=== PATIENT | male | born 1960 | race Caucasian/White ===

== ENCOUNTER 2017-12-08 05:42 | Day surgery (SDC) | payer BC ==
[~2017-12-08] VITALS: Ht 177.8 cm; Wt 111.0 kg
[~2017-12-08 05:42] MED LIST: CALC500T93 PO; GLUC1CAP40 PO; LORA10TA3 PO; MAGN400C PO; MULT1TAB60 PO; OMEG-107 PO; ZINC30TA2 PO
[2017-12-08] MEDS ORDERED: LACTATED RINGERS 1,000 ML IV SCH (06:09)
[2017-12-08 06:10] VITALS: BP 154/88
[2017-12-08] MEDS ORDERED: MIDAZOLAM 1 MG/ML, 2ML ONE (07:09)
[2017-12-08] MEDS ORDERED: FENTANYL PF 100 MCG/2ML ONE (07:10)
[2017-12-08] MEDS ORDERED: PROPOFOL 50 ML ONE (07:11)
[2017-12-08] MEDS ORDERED: PHENYLEPHRINE 10 MG/ML ONE (07:13)
[2017-12-08] MEDS ORDERED: DEXAMETHASONE 4 MG/ML, 1ML ONE ×2 (07:14)
[2017-12-08] MEDS ORDERED: ONDANSETRON ODT 8 MG ONE ×2 (07:14)
[2017-12-08] MEDS ORDERED: KETAMINE 100 MG/ML, 5ML ONE (07:39)
[2017-12-08] MEDS ORDERED: HALOPERIDOL 5 MG/ML IV PRN (08:30)
[2017-12-08] MEDS ORDERED: FENTANYL PF 100 MCG/2ML IV PRN (08:30)
[2017-12-08] MEDS ORDERED: hydrALAzine 20 MG/ML, 1ML IV PRN (08:30)
[2017-12-08] MEDS ORDERED: OXYcodone 5 MG/5 ML ORAL.SOL UDC PO PRN (08:30)
[2017-12-08] MEDS ORDERED: ACETAMINOPHEN 325 MG TABLET PO PRN (08:30)
[2017-12-08] MEDS ORDERED: MEPERIDINE/PF 25MG/0.5ML IVPush PRN (08:30)
[2017-12-08] MEDS ORDERED: PROMETHAZINE 25 MG/ML, 1ML IV PRN (08:30)
[2017-12-08] MEDS ORDERED: HYDROmorphone 1 MG/ML, 1ML IV PRN (08:30)
[2017-12-08] MEDS ORDERED: LABETALOL 5MG/ML, 20ML IV PRN (08:30)
== END 2017-12-08 09:25 ==
LOC: OUT 05:42
PROVIDERS: ATTEND Internal Medicine Geriatric Medicine
DX: C20 Malignant neoplasm of rectum (principal); K21.9 Gastro-esophageal reflux disease without esophagitis; G47.33 Obstructive sleep apnea (adult) (pediatric); K63.89 Other specified diseases of intestine
CPT/HCPCS: 45391; J1100; J2250; J2370; J2704; J3010; J7120; Q0162